=== PATIENT | female | born 1990 | race Caucasian/White ===

== ENCOUNTER 2024-01-29 15:31 | Day surgery (SDC) | payer OTHER ==
[2024-01-29 15:55] VITALS: BMI 31.1
== END 2024-01-29 17:05 | disposition home or self-care (01) ==
LOC: CSHLD/OP 15:31
PROVIDERS: ATTEND Family Medicine
DX: O36.8130 Decreased fetal movements, third trimester, not applicable or unspecified (principal); O09.523 Supervision of elderly multigravida, third trimester; Z3A.40 40 weeks gestation of pregnancy